=== PATIENT | female | born 1985 | race Two or more races ===

== ENCOUNTER 2018-02-20 08:20 | Inpatient (IN) | payer OTHER ==
[2018-02-20 09:13] VITALS: BMI 34.4
[2018-02-20 09:49] LABS: BASO % 0.2 % (0-2.0); EOS % 0.7 % (0-4.5); HEMATOCRIT 35.3 % (32.4-45.2); HEMOGLOBIN 11.9 GM/dL (10.7-15.3); MCH 29.7 pg (25.7-33.7); MCHC 33.7 g/dl (32.0-36.0); MEAN CELL VOLUME 88.3 fl (80-96); MEAN PLT VOLUME 8.6 fl (7.5-11.1); MONO % 6.5 % (3.8-10.2); NEUT % 66.6 % (42.8-82.8); PLATELET COUNT 269 K/MM3 (134-434); RDW 13.5 % (11.6-15.6)
[2018-02-20 10:02] LABS: INR 0.97 (0.83-1.09)
[2018-02-20 10:05] LABS: ANION GAP 11 MMOL/L (8-16); BLOOD UREA NITROGEN 7 mg/dL (7-18); CALCIUM 8.8 mg/dL (8.5-10.1); CHLORIDE 108 mmol/L (98-107); CO2 22 mmol/L (21-32); CREATININE 0.5 mg/dL (0.55-1.02); GLUCOSE,RANDOM 98 mg/dL (74-106); POTASSIUM 4.5 mmol/L (3.5-5.1); SODIUM 141 mmol/L (136-145)
--- NOTE | 2018-02-20 10:11 | HP ---
Past Medical History - Admission History of Present Illness: 32 yo @ 40 1/7 wks by first trimester ultrasound, EDC 02/19/2018 complicated by: 1. Maternal Obesity - early GCT and 26+ wk GCT WNL EFW 02/19 - 64%, 3840 g (8 lb 7 oz) 2. Anxiety - on Concerta and Adderall - dc'd in first trimester Patient presents for routine pitocin induction / augmentation of labor. She reports mild contractions, she reports movement, denies leakage of fluid or vaginal bleeding. History Source: Patient Limitations to Obtaining History: No Limitations - Past Medical History Cardiovascular: No: HTN Pulmonary: No: Asthma Gastrointestinal: No: GERD ...: 2 ...Para: 0 ...Term: 0 ...: 0 ...Spon : 0 ...Induced : 1 ...Multiple Gestation: 0 ...LMP: 05/14/17 ... Weeks Gestation by Dates: 40.2 ...EDC by Dates: 02/18/18 ...EDC by Sono: 02/19/18 Heme/Onc: No: Anemia Psych: Yes: Anxiety - Past Surgical History Hx Myomectomy: No Hx Transabdominal Cerclage: No Additional Surgical History: Keloid removal from ear - Smoking History Smoking history: Never smoked Have you smoked in the past 12 months: No - Alcohol/Substance Use Hx Alcohol Use: No History of Substance Use: reports: None - Social History Usual Living Arrangement: Yes: With Spouse History of Recent Travel: No Home Medications - Allergies Allergies/Adverse Reactions: Allergies Allergy/AdvReac Type Severity Reaction Status Date / Time apple Allergy Severe Swelling Verified 02/20/18 09:05 peach Allergy Severe Swelling Verified 02/20/18 09:05 pear Allergy Severe Swelling Verified 02/20/18 09:05 [email or web address] Allergy Severe Swelling Uncoded 02/20/18 09:05 - Home Medications Home Medications: Ambulatory Orders Vit 108/Iron/Folic AC [ One Tablet] 1 tab PO DAILY 01/31/18 Family Disease History - Family Disease History Family History: Denies Review of Systems - Review of Systems Constitutional: reports: No Symptoms Neck: reports: No Symptoms Cardiovascular: reports: No Symptoms Respiratory: reports: No Symptoms Gastrointestinal: reports: No Symptoms Musculoskeletal: reports: No Symptoms Integumentary: reports: No Symptoms Endocrine: reports: No Symptoms Hematology/Lymphatic: reports: No Symptoms Psychiatric: reports: No Symptoms Physical Exam - Maternity Vital Signs: Vital Signs Temperature 98.4 F 02/20/18 09:00 Pulse Rate 100 H 02/20/18 09:00 Respiratory Rate 18 02/20/18 09:00 Blood Pressure 107/68 02/20/18 09:00 O2 Sat by Pulse Oximetry (%) Constitutional: Yes: Well Nourished, No Distress, Calm Cardiovascular: Yes: Regular Rate and Rhythm Lungs: Clear to auscultation - Abdominal Exam/OB Number of Fetuses: Single Presentation: Vertex Contractions: Yes Regularity: Regular Intensity: Mild Heart Rate (range): 130 Category: I Accelerations: Non-Uniform Decelerations: None - Vaginal Exam/OB Vaginal Bleediing: No Speculum Exam: No Station: -2 - Physical Exam Edema: No Psychiatric: Yes: Alert, Oriented - Labs Lab Results: CBC, BMP 02/20/18 09:20 PNL: O positive; Varicella immune; Hg [place] AA; Rubella Immune; Parvo Non-immune; HBs Ag neg; HCV neg; HIV neg; RPR NR; early GCT neg; 26+ wk GCT WNL; GBS neg Hemorrhage Risk Assessment - Risk Factors Medium Risk Factors: Yes: None High Risk Factors: Yes: None Risk Score: 1 Risk Level: Medium Risk Assessment/Plan 32 yo for pitocin / augmentation of labor 1. Admit to L&D 2. Routine labs collected sent 3. Consents reviewed and signed, reviewed risks including induction failure, infection, bleeding, need for emergent CD, intolerance of labr 4. Category I FHT 5. Will plan for AROM, pitocin if needed 6. Will offer pain medication upon patient's request
[2018-02-20] MEDS ORDERED: ELECTROLYTE-148 SOLN 1,000 ML IV SCH (10:15)
--- NOTE | 2018-02-20 10:29 | PN ---
Ante-Partal Exam - Subjective Subjective: comfortable, mild contractions Vital Signs: Vital Signs Temperature 98.4 F 02/20/18 09:00 Pulse Rate 100 H 02/20/18 09:00 Respiratory Rate 18 02/20/18 09:00 Blood Pressure 107/68 02/20/18 09:00 O2 Sat by Pulse Oximetry (%) Bleeding: No Headache: No Visual changes: No Right upper quadrant pain: No - Contractions Contractions: Yes Regularity: Regular Intensity: Mild/Mod Monitor Mode: External - Exam during Labor Heart Rate: 140 Variability: Moderate Category: I Monitor Accelerations: Present Monitor Decelerations: None Exam: Vaginal Dilatation (cm): 4 Effacement (%): 50 Amniotic Membrane Status: Ruptured Amniotic Fluid: Clear Presentation: Vertex Station: -3 - Intrapartum Hemorrhage Risk Medium Risk Factors: None High Risk Factors: None Risk Score: 0 Risk Level: Low Risk - Assessment/Plan Assessment/Plan: 32 yo augmenation of labor / pitocin inductin 1. AROM performed, clear fluid 2. No pain - will offer epidural upon request 3. GBS neg 4. Category I FHT 5. Will proceed with expectant management
[2018-02-20] MEDS ORDERED: TUBERCULIN PPD 5 TU/0.1ML SYRINGE (IN PATIENT USE ONLY) ID ONE (11:00)
[2018-02-20] MEDS ORDERED: OXYTOCIN 30 UNITS in 0.9% NS 30 UNIT/500 ML INFUS.BAG IVPB SCH (12:00)
--- NOTE | 2018-02-20 15:01 | PN ---
Ante-Partal Exam - Subjective Subjective: Patient reports pain with contractions Vital Signs: Vital Signs Temperature 98.0 F 02/20/18 14:00 Pulse Rate 76 02/20/18 14:00 Respiratory Rate 18 02/20/18 14:00 Blood Pressure 106/59 02/20/18 14:00 O2 Sat by Pulse Oximetry (%) Bleeding: No Headache: No Visual changes: No Right upper quadrant pain: No Pain (scale 1-10): 7 - Contractions Regularity: Regular Intensity: Mod/Strong Monitor Mode: External - Exam during Labor Heart Rate: 125 Variability: Moderate Category: I Monitor Accelerations: Present Monitor Decelerations: None Exam: Vaginal Dilatation (cm): 5-6 Amniotic Membrane Status: Ruptured Amniotic Fluid: Clear Presentation: Vertex Station: -2 - Intrapartum Hemorrhage Risk Medium Risk Factors: None High Risk Factors: None Risk Score: 0 Risk Level: Low Risk - Assessment/Plan Assessment/Plan: 32 yo now active labor 1. Will continue pitocin per protocol 2. Will offer pain medication upon patient's request 3. GBS neg 4. Will proceed with expectant management
[2018-02-20] MEDS ORDERED: FENTANYL/BUPIVACAINE/NS/PF - PCEA - 50 ML DISP.SYRIN EP ONE (15:06)
[2018-02-20] MEDS ORDERED: NALOXONE HCL 0.4 MG/ML VIAL IVPUSH PRN (15:52)
[2018-02-20] MEDS ORDERED: FENTANYL/BUPIVACAINE/NS/PF - PCEA - 50 ML DISP.SYRIN EP SCH (16:00)
--- NOTE | 2018-02-20 18:03 | PN ---
Ante-Partal Exam - Subjective Subjective: Patient comfortable s/p epidural Vital Signs: Vital Signs Temperature 98.0 F 02/20/18 16:27 Pulse Rate 77 02/20/18 17:00 Respiratory Rate 18 02/20/18 17:00 Blood Pressure 113/60 02/20/18 17:00 O2 Sat by Pulse Oximetry (%) 98 02/20/18 17:15 Bleeding: Yes Bleeding Description: Mild Headache: No Visual changes: No Right upper quadrant pain: No - Contractions Contractions: Yes Regularity: Regular Intensity: Unaware Monitor Mode: External - Exam during Labor Variability: Moderate Category: I Monitor Accelerations: Present Monitor Decelerations: None Exam: Vaginal Dilatation (cm): 9.5 Effacement (%): 100 Amniotic Membrane Status: Ruptured Amniotic Fluid: Clear Presentation: Vertex Station: -1 - Intrapartum Hemorrhage Risk Medium Risk Factors: None High Risk Factors: None Risk Score: 0 Risk Level: Low Risk - Assessment/Plan Assessment/Plan: 32 yo active labor 1. Good cervical change 2. Pain well controlled 3. GBS neg 4. Cat I FHT 5. Will proceed with expectant management
[2018-02-20] MEDS ORDERED: OXYTOCIN 20 UNITS in 0.9% NS 20 UNIT/1,000 ML INFUS.BAG IV ONE ×2 (18:21→23:44)
[2018-02-20] MEDS ORDERED: LIDOCAINE HCL 1% PRESERVATIVE FREE - 30ML VIAL ONE (18:21)
[2018-02-20] MEDS ORDERED: BISACODYL 10 MG SUPP.RECT RC PRN (22:12)
[2018-02-20] MEDS ORDERED: WITCH HAZEL 50% (TUCKS) 40 PAD/JAR PAD TP PRN (22:12)
[2018-02-20] MEDS ORDERED: BENZOCAINE 28 GM HEMORRHOIDAL OINTMENT TP PRN (22:12)
[2018-02-20] MEDS ORDERED: oxyCODONE HCL 5 MG TABLET PO PRN (22:12)
[2018-02-20] MEDS ORDERED: METHYLERGONOVINE MALEATE 0.2 MG/1 ML AMP IM PRN (22:12)
[2018-02-20] MEDS ORDERED: BENZOCAINE 20% 57 GM BOTTLE TP PRN (22:12)
--- NOTE | 2018-02-20 22:12 | PN ---
Delivery - Delivery Vaginal Delivery: No Problems Type of Anesthesia: Epidural Episiotomy/Laceration: 2nd degree EBL (cc): 300 Delivery, Single - Stages of Labor Date 1st Stage Initiatied: 02/20/18 Date 2nd Stage Initiated: 02/20/18 Time 2nd Stage Initiated: 19:20 Date of Delivery: 02/20/18 Time of Delivery: 21:31 Date Placenta Delivered: 02/20/18 Time Placenta Delivered: 21:50 Placenta: Yes: Spontaneous - Condition of Infant Infant Gender: Male Position: Right, OA Total Hours ROM (Hrs/Mins): 11 hours 25 minutes - 1 Minute Total Score: 9 5 Minutes Total Score: 9 - Feeding Plan Initial Plan: Exclusive throughout hospitalization Remarks - Remarks Remarks: Patient progressed to fully dilated and at 2131 via delivered a viable male in JOYCE position, APGARs 9,9. Weight and length unknown at this time. Head delivered spontaneously, nuchal cord noted and reduced. Right compound hand noted, shoulders and body followed without difficulty. Infant with spontaneous cry and placed on mother's abdomen. Nose and mouth was bulb suctioned. Cord was clamped and cut. Perineum and vagina examined, a second degree laceration was noted and repaired in the usual fashion. Rectal exam revealed no sutures in rectum. Placenta was delivered spontaneously and intact. 20 units of pitocin in 1 L IVF was given. All counts correct x 2. Mother and infant stable in LDR. EBL 300cc.
[2018-02-20] MEDS ORDERED: OXYTOCIN 20 UNITS in 0.9% NS 20 UNIT/1,000 ML INFUS.BAG IV SCH (22:15)
[2018-02-21] MEDS: IBUPROFEN 600 MG TABLET (FP) PO PRN ×4 (00:19→20:29)
[2018-02-21] MEDS: ACETAMINOPHEN 325 MG TABLET (FP) PO PRN ×4 (00:20→20:29)
--- NOTE | 2018-02-21 01:00 | PN ---
Post Progress Note - Subjective Subjective: Patient without acute complaints. Reports tolerating oral intake without nausea or vomiting. Ambulating without dizziness. Denies fevers or chills. Pain well controlled with oral pain medication. without difficulty. Passing flatus. Post Day: 1 Type of Delivery: Vital Signs: Vital Signs Temperature 98.4 F 02/20/18 22:00 Pulse Rate 73 02/20/18 22:45 Respiratory Rate 18 02/20/18 22:45 Blood Pressure 107/51 02/20/18 22:45 O2 Sat by Pulse Oximetry (%) 100 02/20/18 22:45 Breast Exam: Yes: Soft Uterus: Yes: Fundus Firm Abdomen/GI: Yes: Abdomen soft Lochia: Yes: Serosa Lochia, amount: Moderate Extremities: Yes: Calves non-tender, Edema (+1) Perineum: Yes: Laceration Activity: Ambulating - Labs Labs: CBC WBC 11.0 K/mm3 (4.0-10.0) H 02/20/18 09:20 RBC 4.00 M/mm3 (3.60-5.2) 02/20/18 09:20 Hgb 11.9 GM/dL (10.7-15.3) 02/20/18 09:20 Hct 35.3 % (32.4-45.2) 02/20/18 09:20 MCV 88.3 fl (80-96) 02/20/18 09:20 MCH 29.7 pg (25.7-33.7) 02/20/18 09:20 MCHC 33.7 g/dl (32.0-36.0) 02/20/18 09:20 RDW 13.5 % (11.6-15.6) 02/20/18 09:20 Plt Count 269 K/MM3 (134-434) 02/20/18 09:20 MPV 8.6 fl (7.5-11.1) 02/20/18 09:20 Absolute Neuts (auto) 7.3 K/mm3 (1.5-8.0) 02/20/18 09:20 Neutrophils % 66.6 % (42.8-82.8) 02/20/18 09:20 Lymphocytes % 26.0 % (8-40) 02/20/18 09:20 Monocytes % 6.5 % (3.8-10.2) 02/20/18 09:20 Eosinophils % 0.7 % (0-4.5) 02/20/18 09:20 Basophils % 0.2 % (0-2.0) 02/20/18 09:20 Nucleated RBC % 0 % (0-0) 02/20/18 09:20 Assessment/Plan 32 yo PPD # 1 s/p , afebrile, vital signs stable, doing well 1. Continue routine care. 2. AM CBC without anemia 3. Rh positive status, no rhogam indicated. 4. Encourage ambulation 5. Continue oral pain medication 6. Anticipate discharge home day #2
[2018-02-21 08:35] LABS: BASO % 0.1 % (0-2.0); EOS % 0.3 % (0-4.5); HEMATOCRIT 31.4 % (32.4-45.2); HEMOGLOBIN 10.4 GM/dL (10.7-15.3); LYMPH % 18.7 % (8-40); MCH 29.3 pg (25.7-33.7); MCHC 33.2 g/dl (32.0-36.0); MEAN CELL VOLUME 88.2 fl (80-96); MEAN PLT VOLUME 8.6 fl (7.5-11.1); MONO % 6.9 % (3.8-10.2); PLATELET COUNT 237 K/MM3 (134-434); RBC 3.56 M/mm3 (3.60-5.2); RDW 13.6 % (11.6-15.6); WHITE BLOOD COUNT 17.5 K/mm3 (4.0-10.0)
[2018-02-21] MEDS: PRENATAL VITAMINS W/ FOLIC ACID TABLET (FP) PO SCH (09:46)
[2018-02-21] MEDS ORDERED: ENOXAPARIN NA (PORCINE) 40 MG/0.4 ML DISP.SYRIN SQ SCH (10:00)
[2018-02-21] MEDS ORDERED: SENNOSIDES/DOCUSATE COMBO (SENNA PLUS) TABLET (UD) PO PRN (22:00)
[2018-02-22] MEDS: IBUPROFEN 600 MG TABLET (FP) PO PRN ×2 (00:34→09:09)
[2018-02-22] MEDS: ACETAMINOPHEN 325 MG TABLET (FP) PO PRN ×2 (00:34→09:10)
[2018-02-22 01:04] VITALS: PULSE 78
--- NOTE | 2018-02-22 07:17 | DS ---
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 Vital Signs: Vital Signs Temperature 98.2 F 02/21/18 22:00 Pulse Rate 78 02/21/18 22:00 Respiratory Rate 18 02/21/18 22:00 Blood Pressure 92/47 02/21/18 22:00 O2 Sat by Pulse Oximetry (%) 100 02/20/18 22:45 Constitutional: Yes: Well Nourished, No Distress, Calm Eyes: Yes: WNL, Conjunctiva Clear, EOM Intact HENT: Yes: WNL, Atraumatic, Normocephalic Neck: Yes: WNL, Supple, Trachea Midline Cardiovascular: Yes: WNL, Regular Rate and Rhythm Respiratory: Yes: WNL, Regular, CTA Bilaterally Gastrointestinal: Yes: WNL ...Rectal Exam: Yes: WNL Renal/: Yes: WNL ....Post : Yes: Uterus firm, Uterus non-tender, Slight lochia rubra Breast(s): Yes: WNL Musculoskeletal: Yes: WNL Extremities: Yes: WNL Edema: No Integumentary: Yes: WNL Neurological: Yes: WNL, Alert, Oriented ...Motor Strength: WNL Psychiatric: Yes: WNL, Alert, Oriented Labs: CBC, BMP 02/21/18 07:45 02/20/18 09:20 Delivery - Delivery Vaginal Delivery: No Problems, Spontaneous Type of Anesthesia: Epidural Episiotomy/Laceration: 2nd degree EBL (cc): 300 Delivery, Single - Stages of Labor Date 1st Stage Initiatied: 02/20/18 Time 1st Stage Initiated: 10:25 Date 2nd Stage Initiated: 02/20/18 Time 2nd Stage Initiated: 19:20 Date of Delivery: 02/20/18 Time of Delivery: 21:31 Time Placenta Delivered: 21:50 Placenta: Yes: Spontaneous - Condition of Infant Electronic [employer] G[employer] Editor/[employer] Jelly Roller Present: [place]: Chris Gonsalves Gender: Male Weight: 8 lb 2 oz Position: Right, OA Total Hours ROM (Hrs/Mins): 11 hours 25 minutes - 1 Minute Total Score: 9 5 Minutes Total Score: 9 - [place] Feeding Plan Initial Plan: Exclusive throughout hospitalization Discharge Summary Reason For Visit: LABOR ADMISSION Procedures: Principal: Hospital Course: no complication Condition: Good - Instructions Diet, Activity, Other Instructions: REGULAR DIET, FOLLOW UP OFFICE 4 WEEKS,IF FEVER, HEAVY VAGINAL BLEEDING ,PAIN CALL MD NO INTERCOURSE Referrals: Be Kerns SUPER [Extrusion Bender] - Disposition: HOME - Home Medications Comprehensive Discharge Medication List: Ambulatory Orders Vit 108/Iron/Folic AC [ One Tablet] 1 tab PO DAILY 01/31/18 Ibuprofen [Motrin -] 600 mg PO QID #28 tablet 02/21/18
[2018-02-22] MEDS: PRENATAL VITAMINS W/ FOLIC ACID TABLET (FP) PO SCH (09:10)
[2018-02-22 09:18] VITALS: BP 119/64; TEMP 98.1
== END 2018-02-22 13:56 | disposition home or self-care (01) | DRG 775 ==
LOC: JLDR 08:20 → J3W 02-21 00:02
PROVIDERS: ADMIT Obstetrics & Gynecology; ATTEND Obstetrics & Gynecology
PROC: 0KQM0ZZ Repair Perineum Muscle, Open Approach (ICD-10-PCS; principal; 2018-02-20)
PROC: 10E0XZZ Delivery of Products of Conception, External Approach (ICD-10-PCS; 2018-02-20)
DX: O48.0 Post-term pregnancy (principal); O99.214 Obesity complicating childbirth; E66.8 Other obesity; Z68.34 Body mass index [BMI] 34.0-34.9, adult; O70.1 Second degree perineal laceration during delivery; F41.9 Anxiety disorder, unspecified; O99.344 Other mental disorders complicating childbirth; Z37.0 Single live birth; Z3A.40 40 weeks gestation of pregnancy
CPT/HCPCS: 36415; 59409; 80048; 85025; 85610; 85730; 86593; 86850; 86900; 86901